=== PATIENT | male | born 1990 | race Caucasian/White ===

== ENCOUNTER 2023-05-03 23:56 | Observation (INO) ==
[2023-05-04] MEDS ORDERED: HYDROmorphone INJ 1 MG/ML SYRINGE IV STA (00:34)
[2023-05-04] MEDS ORDERED: ONDANSETRON INJ 2 MG/ML 2 ML VIAL IV STA (00:34)
[2023-05-04] MEDS ORDERED: SODIUM CHLORIDE 0.9% 1,000 ML IV ONE (00:50)
[2023-05-04 00:59] LABS: iSTAT Creatinine 1.5 mg/dl (0.6-1.3); iSTAT Hemoglobin 15.6 g/dl (14.0-18.0); iSTAT Ionized Calcium 1.05 mmol/l (1.12-1.32); iSTAT Potassium 3.7 mmol/L (3.3-5.0)
[2023-05-04] MEDS ORDERED: OPTIRAY 320 500ml IV ONE (01:04)
[2023-05-04 01:11] LABS: Hematocrit (blood only) 43.5 % (42.0-52.0); Hemoglobin 14.8 g/dl (14.0-18.0); Mean Corpuscular Hemoglobin 28.5 pg (25.0-34.0); Mean Corpuscular Volume 83.7 fL (80.0-100.0); Mean Platelet Volume 10.2 fL (9.4-12.4); Platelet Count 294 K/uL (130-400); RDW Coefficient of Variation 12.4 % (11.5-14.5); RDW Standard Deviation 37.9 fL (36.4-46.3); White Blood Count 24.59 K/ul (4.8-10.8)
--- NOTE | 2023-05-04 01:18 | Emergency Department Note ---
Impression & Plan Acute appendicitis Patient will be admitted to general surgery-Dr. Bergeron ED Provider Note NAME: CARRIE BRICENO AGE: 33 SEX: Male INFORMANT: Patient ED PROVIDER(S): Bambi Griffith DO CHIEF COMPLAINT: Suprapubic abdominal pain PLAN: Disposition: Admit to Dr. Bergeron-surgery MEDICAL DECISION MAKING: This is a 33-year-old male patient who presents to the emergency department with 24-36-hour history of worsening lower abdominal pain. Patient has no previous surgical history. He has been urinating normally but feels like his bladder is distended. He normally moves his bowels daily and believes that he did so this morning. On physical exam, the patient has an acute abdomen. He is guarding and has rebound. Laboratory studies reveal significant leukocytosis greater than 25,000. Renal function was normal. LFTs were normal. Patient was medicated with IV Dilaudid and Zofran for the pain and nausea. This did seem to help with the discomfort. After CT scan, the patient's pain began to return and he was given dose of IV fentanyl. I discussed the case with Dr. Bergeron and she will evaluate for further inpatient care. Care/management discussed with: Dr. Bergeron-General surgery Triage Nursing notes: Reviewed and agree with them. Vital Signs: reviewed and remarkable for hypertension and tachycardia Additional History obtained from: Patient's father who is at the bedside Differential Diagnosis: Urinary outlet obstruction, ureteral colic, perforated viscus, acute appendicitis, diverticulitis, testicular torsion Diagnostics, independently interpreted by me: Cardiac Monitoring: Sinus tachycardia at 108 Imaging studies: CT scan of the abdomen/pelvis: As per stat read HPI: 33 year old Male arrives for evaluation of suprapubic abdominal pain. Patient started to develop some mild discomfort in the suprapubic region on Thursday night that persisted into Thursday morning. It got significantly worse throughout the day to the point that patient could barely move. He does continue to urinate normally. He does believe he moved his bowels this morning as it is typically every day.. 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 Pupils are equal, round, and reactive to light. Extraocular eye muscles are intact, and sclera are anicteric. Nose - moist nasal mucosa without discharge. Mouth - moist buccal mucosa. Oropharynx is nonerythematous and there is no tonsillar exudate or edema noted. Neck: Supple; no JVD, nuchal rigidity, cervical lymphadenopathy, or auscultated bruits. Heart: Tachycardic rate and regular rhythm there is a normal S1 and S2 with no murmurs, clicks, or gallops appreciated. Lungs: Clear to auscultation bilaterally with no wheezes, rales, or rhonchi. Abdomen: Soft, exquisitely tender to palpation in the suprapubic and periumbilical region. The patient is guarding and has rebound. His exam is consistent with an acute abdomen. There are no palpable pulsatile masses or hepatosplenomegaly. There is no guarding, rigidity, or rebound noted. Extremities: No evidence of cyanosis, clubbing, or edema. There are easily palpable peripheral pulses. Skin: warm and dry with good turgor and no rashes. Emergency department treatment: picking machine operator, IV Zofran, IV Dilaudid, IV normal saline bolus Emergency department course: The patient was evaluated in room A-3. A complete history and physical was performed. A bladder scan was performed while I was in the room and revealed only 40 mL of urine within the bladder. Simply doing this test was extremely painful for the patient. An i-STAT was obtained which showed mildly elevated creatinine and elevated H/H most likely consistent with hemoconcentration. Patient was given a dose of IV Zofran and IV Dilaudid for the pain. He was bolused with IV normal saline solution. He went for CT scan of the abdomen/pelvis. Upon return from radiology, he had increased pelvic pain and was given a dose of IV fentanyl. Past Med/Surg History Social History Smoking Status: Former smoker Preferred Language: B[place] Feels Safe at Home: Yes Allergies Allergies Allergy/AdvReac Type Severity Reaction Status Date / Time No Known Allergies Allergy Unverified 05/04/23 01:12 Home Meds Home Medications Medication Instructions Recorded Confirmed No Known Home Medications 05/04/23 05/04/23 Results & Data (ED) Vital Signs Vital Signs - 24 hr 05/04/23 00:02 05/04/23 00:50 05/04/23 02:00 Temperature 37.3 C Temperature Source Temporal Artery Scan Pulse Rate 108 H 102 H Pulse Rate [Finger] 94 H Respiratory Rate 17 18 Respiratory Effort / Characteristics Spontaneous Respiratory Depth Normal Blood Pressure 143/81 H Blood Pressure [Left Arm] 134/81 Blood Pressure Mean 101 Blood Pressure Mean [Left Arm] 98 Pulse Oximetry 96 96 Oxygen Delivery Method Room Air Room Air Sepsis Recent Fever Within 48 Hours No Sepsis New/Unexplained Change in Mental Status No Sepsis Action Taken by Nursing No Action Required Laboratory Data 05/04/23 00:43 05/04/23 00:43 Lab Results 05/04/23 05/04/23 05/04/23 Range/Units 00:43 00:46 02:07 WBC 24.59 H (4.8-10.8) K/ul RBC 5.20 (4.70-6.10) M/uL Hgb 14.8 (14.0-18.0) g/dl POC Hgb 15.6 (14.0-18.0) g/dl Hct 43.5 (42.0-52.0) % POC Hct 46 (42-52) % MCV 83.7 (80.0-100.0) fL MCH 28.5 (25.0-34.0) pg MCHC 34.0 (32.0-36.0) g/dL RDW Std Deviation 37.9 (36.4-46.3) fL RDW Coeff of Jaymie 12.4 (11.5-14.5) % Plt Count 294 (130-400) K/uL MPV 10.2 (9.4-12.4) fL Immature Gran % (Auto) 0.8 % Neut % (Auto) 87.1 % Lymph % (Auto) 4.0 % Bacon % (Auto) 7.8 % Eos % (Auto) 0.0 % Baso % (Auto) 0.3 % Neut # (Auto) 21.42 H (1.40-6.50) K/uL Lymph # (Auto) 0.98 L (1.20-3.40) K/uL Bacon # (Auto) 1.92 H (0.11-0.59) K/uL Eos # (Auto) 0.00 (0.00-0.50) K/uL Baso # (Auto) 0.07 (0.00-0.20) K/uL Immature Gran # (Auto) 0.20 (0.01-0.20) K/uL POC Sodium 137 (135-144) mmol/L Sodium 135 L (136-145) mmol/L POC Potassium 3.7 (3.3-5.0) mmol/L Potassium 3.7 (3.5-5.1) mmol/L POC Chloride 101 (101-112) mmol/L Chloride 99 (98-107) mmol/L Carbon Dioxide 24 (21-32) mmol/L POC Total CO2 23 L (24-31) mmol/L Anion Gap 12 H (3-11) POC Anion Gap 19.0 (16-25) mmol/L POC BUN 20 H (7-18) mg/dl BUN 20 (6-23) mg/dl Creatinine 1.41 H (0.6-1.4) mg/dl POC Creatinine 1.5 H (0.6-1.3) mg/dl Est Cr Clr Drug Dosing Not Reportable Est GFR ( Amer) 76.4 ml/min Est GFR (Non-Af Amer) 65.9 ml/min BUN/Creatinine Ratio 14.2 (10-20) Glucose 120 H (70-99(Fasting)) mg/dl POC Glucose (other) 124 H (70-99) mg/dl Lactate 0.9 (0.4-2.0) mmol/L Calcium 9.1 (8.6-10.3) mg/dl POC Ioniz Calcium Yobany 1.05 L (1.12-1.32) mmol/l Total Bilirubin 0.7 (0.2-1.0) mg/dl AST 10 L (13-39) U/L ALT 11 (7-52) U/L Alkaline Phosphatase 88 (34-104) U/L Total Protein 7.9 (6.0-8.3) gm/dl Albumin 4.3 (3.4-5.0) gm/dl Globulin 3.6 (2.5-4.0) gm/dl Albumin/Globulin Ratio 1.2 (0.9-2) Lipase 40 (11-82) U/L Procalcitonin 11.67 H (0-0.5) ng/ml Administered Medications Morphine Sulfate (Morphine Sulfate 4 Mg/Ml 1 Ml Carp\Vial) 4 mg IV Q3H PRN PRN Reason: Pain (6,7,8,9,10) Stop: 05/18/23 04:17 Last Admin: 05/04/23 05:11 Dose: 4 mg Documented By: SHAKEEL Ondansetron HCl (Ondansetron Inj 2 Mg/Ml 2 Ml Vial) 4 mg IV Q4H PRN PRN Reason: Nausea And Vomiting Stop: 06/03/23 04:17 Last Admin: 05/04/23 05:11 Dose: 4 mg Documented By: SHAKEEL Discontinued Medications Fentanyl Citrate (Fentanyl Citrate Pf 100 Mcg/2 Ml Vial) 100 mcg IV NOW STA Stop: 05/04/23 02:02 Last Admin: 05/04/23 02:24 Dose: 100 mcg Documented By: KENNETH Hydromorphone HCl (Hydromorphone Inj 1 Mg/Ml Syringe) 1 mg IV NOW STA Stop: 05/04/23 00:35 Last Admin: 05/04/23 00:49 Dose: 1 mg Documented By: FAUSTO Sodium Chloride (Nss) 1,000 mls @ 999 mls/hr IV .Q1H1M ONE Stop: 05/04/23 01:50 Last Infusion: 05/04/23 02:38 Dose: Infused Documented By: Admin: 05/04/23 01:12 Dose: 999 mls/hr Documented By: FAUSTO Piperacillin Sod/Tazobactam Sod (Zosyn) 4.5 gm in 100 mls @ 200 mls/hr IV NOW STA Stop: 05/04/23 05:20 Last Admin: 05/04/23 05:32 Dose: 200 mls/hr Documented By: SHAKEEL Ioversol (Optiray 320 500ml) 100 ml IV ONCE ONE Stop: 05/04/23 01:05 Last Admin: 05/04/23 01:04 Dose: 80 ml Documented By: BREANNE Ondansetron HCl (Ondansetron Inj 2 Mg/Ml 2 Ml Vial) 4 mg IV NOW STA Stop: 05/04/23 00:35 Last Admin: 05/04/23 00:49 Dose: 4 mg Documented By: FAUSTO Imaging Data Radiologist's Impression: Abdomen/Pelvis CT 05/04/23 00:34 CR Exam(s): CT ABDOMEN + PELVIS With Contrast IV Amt: 80 ML OPTIRAY 320 EXAM: CT Abdomen and Pelvis With Intravenous Contrast CLINICAL HISTORY: Reason for exam: Severe suprapubic pain. TECHNIQUE: Axial computed tomography images of the abdomen and pelvis with intravenous contrast. Automated exposure control was utilized for the study. A dose lowering technique was utilized adhering to the principles of ALARA. CONTRAST: Patient received 80 ML OPTIRAY 320 of IV contrast COMPARISON: No relevant prior studies available. FINDINGS: Lung bases: Unremarkable. No mass. No consolidation. ABDOMEN: Liver: Unremarkable. No mass. Gallbladder and bile ducts: Unremarkable. No calcified stones. No ductal dilation. Pancreas: Unremarkable. No mass. No ductal dilation. Spleen: Unremarkable. No splenomegaly. Adrenals: Unremarkable. No mass. Kidneys and ureters: Unremarkable. No solid mass. No hydronephrosis. Stomach and bowel: Unremarkable. No obstruction. No mucosal thickening. PELVIS: Appendix: There is an inflammatory process in the upper pelvis. A normal appendix is not identified. There is a small calcification which may represent an appendicolith. These findings likely represent Bladder: Unremarkable. No mass. Reproductive: Unremarkable as visualized. ABDOMEN and PELVIS: Intraperitoneal space: Unremarkable. No free air. No significant fluid collection. Bones/joints: No acute fracture. No dislocation. Soft tissues: Unremarkable. Vasculature: Unremarkable. No abdominal aortic aneurysm. Lymph nodes: Unremarkable. No enlarged lymph nodes. IMPRESSION: Inflammatory process in the pelvis without a normal appendix identified. The findings are likely related to acute appendicitis. There is no free air or drainable abscess clearly indicate rupture. Communications: 05/04/23 02:27 Call Doctor Regarding Appendicitis, called Dr. Griffith on 05/04 02:27 (-05:00) Electronically signed by: Oziel Esposito MD 05/04/23 02:30 AM Discharge Plan Visit Data Chief Complaint: GI Assessment Stated Complaint: LWR ABDOMINAL PAIN,UNABLE TO GO ED Provider: Bambi Griffith Discharge Problem: Acute appendicitis Patient Disposition: Admitted As Inpatient Discharge Instructions Interventions: ED Discharge Assessment Last Done: 05/04/23 04:39 Discharge Problem: Acute appendicitis Qualifiers: Acute appendicitis type: with generalized peritonitis
[2023-05-04 01:26] LABS: Alanine Aminotransferase 11 U/L (7-52); Albumin Globulin Ratio 1.2 (0.9-2); Albumin Level 4.3 gm/dl (3.4-5.0); Alkaline Phosphatase 88 U/L (34-104); Anion Gap 12 (3-11); Aspartate Aminotransferase 10 U/L (13-39); BUN Creatinine Ratio 14.2 (10-20); Bilirubin,Total 0.7 mg/dl (0.2-1.0); Blood Urea Nitrogen 20 mg/dl (6-23); Calcium 9.1 mg/dl (8.6-10.3); Carbon Dioxide 24 mmol/L (21-32); Chloride 99 mmol/L (98-107); Est GFR (African American) 76.4 ml/min; Est GFR (Non-African American) 65.9 ml/min; Globulin 3.6 gm/dl (2.5-4.0); Glucose 120 mg/dl (70-99(Fasting)); Lipase 40 U/L (11-82); Potassium 3.7 mmol/L (3.5-5.1); Sodium 135 mmol/L (136-145); Total Protein 7.9 gm/dl (6.0-8.3)
[2023-05-04 01:28] LABS: Basophils # (auto) 0.07 K/uL (0.00-0.20); Basophils % (auto) 0.3 %; Immature Granulocytes % (auto) 0.8 %; Lymphocytes # (auto) 0.98 K/uL (1.20-3.40); Monocytes # (auto) 1.92 K/uL (0.11-0.59); Monocytes % (auto) 7.8 %; Neutrophils # (auto) 21.42 K/uL (1.40-6.50); Neutrophils % (auto) 87.1 %
[2023-05-04] MEDS ORDERED: fentaNYL citrate PF 100 MCG/2 ML VIAL IV STA (02:01)
--- NOTE | 2023-05-04 02:31 | CT Scan Report ---
Exam(s): CT ABDOMEN + PELVIS With Contrast IV Amt: 80 ML OPTIRAY 320 EXAM: CT Abdomen and Pelvis With Intravenous Contrast CLINICAL HISTORY: Reason for exam: Severe suprapubic pain. TECHNIQUE: Axial computed tomography images of the abdomen and pelvis with intravenous contrast. Automated exposure control was utilized for the study. A dose lowering technique was utilized adhering to the principles of ALARA. CONTRAST: Patient received 80 ML OPTIRAY 320 of IV contrast COMPARISON: No relevant prior studies available. FINDINGS: Lung bases: Unremarkable. No mass. No consolidation. ABDOMEN: Liver: Unremarkable. No mass. Gallbladder and bile ducts: Unremarkable. No calcified stones. No ductal dilation. Pancreas: Unremarkable. No mass. No ductal dilation. Spleen: Unremarkable. No splenomegaly. Adrenals: Unremarkable. No mass. Kidneys and ureters: Unremarkable. No solid mass. No hydronephrosis. Stomach and bowel: Unremarkable. No obstruction. No mucosal thickening. PELVIS: Appendix: There is an inflammatory process in the upper pelvis. A normal appendix is not identified. There is a small calcification which may represent an appendicolith. These findings likely represent Bladder: Unremarkable. No mass. Reproductive: Unremarkable as visualized. ABDOMEN and PELVIS: Intraperitoneal space: Unremarkable. No free air. No significant fluid collection. Bones/joints: No acute fracture. No dislocation. Soft tissues: Unremarkable. Vasculature: Unremarkable. No abdominal aortic aneurysm. Lymph nodes: Unremarkable. No enlarged lymph nodes. IMPRESSION: Inflammatory process in the pelvis without a normal appendix identified. The findings are likely related to acute appendicitis. There is no free air or drainable abscess clearly indicate rupture. Communications: 05/04/23 02:27 Call Doctor Regarding Appendicitis, called Dr. Griffith on 05/04 02:27 (-05:00) Electronically signed by: Oziel Esposito MD 05/04/23 02:30 AM
[2023-05-04] MEDS ORDERED: MoRPHine SULFATE 2 MG/ML CARP IV PRN (04:18)
[2023-05-04] MEDS ORDERED: oxyCODONE/ACETAMINOPHEN 5mg/325mg TAB PO PRN (04:18)
[2023-05-04] MEDS ORDERED: PIPERACILLIN/TAZOBACTAM 4.5 GM/100 ML BAG IV STA (04:51)
[2023-05-04] MEDS: MoRPHine SULFATE 4 MG/ML 1 ML CARP\\VIAL IV PRN ×5 (05:11→22:22)
[2023-05-04] MEDS: ONDANSETRON INJ 2 MG/ML 2 ML VIAL IV PRN ×2 (05:11→08:38)
[2023-05-04] MEDS: LACTATED RINGER'S 1,000 ML IV SCH ×2 (06:08→16:51)
[2023-05-04] MEDS: oxyCODONE/ACETAMINOPHEN 5mg/325mg TAB PO PRN ×2 (08:23→20:35)
[2023-05-04 09:09] LABS: Appearance Urine Clear (Clear); Bacteria Urine Automated Negative (Negative); Bilirubin Urine Negative (Negative); Blood Urine Negative (Negative); Color Urine Yellow; Glucose Urine UA Negative (Negative); Ketones Urine Negative (Negative); Leukocyte Esterase Urine Negative (Negative); Nitrite Urine Negative (Negative); Protein Urine Trace (Negative); RBC Urine Automated 0-4 /hpf (0-4); Specific Gravity Urine > 1.045 (1.000-1.030); Urobilinogen Urine Negative (Negative); pH Urine 5.5 (4.5-7.5)
--- NOTE | 2023-05-04 09:38 | History & Physical Report ---
Date of Service May 04, 2023 Assessment & Plan (1) Acute appendicitis: Plan: IV abx IVf to OR for appendectomy Acute appendicitis type: with generalized peritonitis Admission and Anticipated Discharge Date Admission Date: May 04, 2023 History of Present Illness Primary Care Provider: Wili Hawkins DO This is a 33-year-old male patient who presented to the emergency department with 24-36-hour history of worsening lower abdominal pain. Patient has no previous surgical history. He had a CT scan which shows a lrge 2.5 cm appendicitis, WBC 25,000. . 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 Beliefs That Will Affect Care: None Current Living Situation: Spouse Other Information That Helps Us Care for You: No Feels Safe at Home: Yes Safety Concerns: Feels Safe At This Time Assistive Devices: None Review of Systems + fever and + chills no problem reported no problem reported no cough and no dyspnea no chest pain + abdominal pain and + nausea; no vomiting no dysuria no back pain and no neck pain no problem reported no localized weakness and no generalized weakness no behavioral changes no problem reported no problem reported no problem reported Physical Exam Constitutional: WD/WN, vitals as above Eyes: PERRL, conjunctivae normal, anicteric sclerae ENMT: external ear and nose normal, oropharynx normal Neck: trachea midline Respiratory: normal respiratory effort, lungs clear to auscultation Cardiovascular: RRR, no murmur, no edema Gastrointestinal (Abdomen): Inspection/Auscultation: abdomen normal to inspection and normal bowel sounds; abdomen not distended Percussion/Palpation: + abdomen tender, + guarding and abdomen soft; abdomen not rigid Musculoskeletal: no cyanosis or clubbing, extremities motor strength 5/5 Skin: no rashes, warm and dry Psychiatric: Orientation: alert and oriented x 3 Results & Data Vital Signs (Past 12 Hours) Vital Signs Temp Pulse Pulse Resp BP BP Pulse Ox 05/04/23 08:24 05/04/23 08:24 37.6 C H 92 H 20 151/81 H 95 05/04/23 08:07 87 05/04/23 06:00 87 15 124/60 96 05/04/23 05:40 84 20 94 05/04/23 05:30 85 20 95 05/04/23 05:25 83 19 94 05/04/23 05:00 84 15 113/68 98 05/04/23 04:40 84 24 95 05/04/23 04:30 83 17 95 05/04/23 04:30 113/67 05/04/23 04:20 85 23 95 05/04/23 04:10 83 21 95 05/04/23 04:00 108/66 05/04/23 04:00 84 20 96 05/04/23 04:00 85 20 108/66 95 05/04/23 03:50 84 23 95 05/04/23 03:40 86 18 94 05/04/23 03:30 122/69 05/04/23 03:30 87 24 95 05/04/23 03:20 84 17 94 05/04/23 03:10 85 22 95 05/04/23 03:00 87 21 94 05/04/23 03:00 118/69 05/04/23 02:50 89 17 96 05/04/23 02:40 91 H 16 95 05/04/23 02:30 91 H 32 H 95 05/04/23 02:30 123/81 05/04/23 02:20 89 13 95 05/04/23 02:10 91 H 20 95 05/04/23 02:00 94 H 52 H 96 05/04/23 02:00 134/81 05/04/23 02:00 94 H 18 134/81 96 05/04/23 01:50 89 26 H 94 05/04/23 01:40 92 H 21 95 05/04/23 01:30 130/78 05/04/23 01:30 93 H 21 95 05/04/23 01:20 96 H 24 94 05/04/23 01:12 135/86 05/04/23 01:12 99 H 21 94 05/04/23 00:50 100 H 16 95 05/04/23 00:50 102 H 05/04/23 00:48 100 H 21 95 05/04/23 00:02 37.3 C 108 H 17 143/81 H 96 O2 Del Method 05/04/23 08:24 Room Air 05/04/23 08:24 Room Air 05/04/23 08:07 05/04/23 06:00 Room Air 05/04/23 05:40 05/04/23 05:30 05/04/23 05:25 05/04/23 05:00 Room Air 05/04/23 04:40 05/04/23 04:30 05/04/23 04:30 05/04/23 04:20 05/04/23 04:10 05/04/23 04:00 05/04/23 04:00 05/04/23 04:00 Room Air 05/04/23 03:50 05/04/23 03:40 05/04/23 03:30 05/04/23 03:30 05/04/23 03:20 05/04/23 03:10 05/04/23 03:00 05/04/23 03:00 05/04/23 02:50 05/04/23 02:40 05/04/23 02:30 05/04/23 02:30 05/04/23 02:20 05/04/23 02:10 05/04/23 02:00 05/04/23 02:00 05/04/23 02:00 Room Air 05/04/23 01:50 05/04/23 01:40 05/04/23 01:30 05/04/23 01:30 05/04/23 01:20 05/04/23 01:12 05/04/23 01:12 05/04/23 00:50 05/04/23 00:50 05/04/23 00:48 05/04/23 00:02 Room Air Code Status & VTE Plan VTE Prophylaxis Plan VTE Prophylaxis will be ordered: Yes
[2023-05-04] MEDS ORDERED: HYDROmorphone INJ 0.5 MG/0.5 ML SYR IV STA ×2 (10:59→11:48)
[2023-05-04] MEDS ORDERED: HYDROmorphone INJ 0.5 MG/0.5 ML SYR ONE (11:01)
--- NOTE | 2023-05-04 11:02 | Anesthesiology Consultation ---
Date of Service May 04, 2023 Assessment & Plan Chart Review Chart Review: Acceptable Risk for Surgery and Patient NOT seen in Pre Admission Testing Consults Requested none History Surgery Operation Date: 05/04/23 08:55 Proposed Procedures p Laparoscopic Appendectomy - Kaveh Davis MD Height/Weight Height: 6 ft 3 in Weight: 106.3 kg Allergies Allergy/AdvReac Type Severity Reaction Status Date / Time No Known Allergies Allergy Unverified 05/04/23 01:12 Medications Home Medications Medication Instructions Recorded Confirmed Last Taken No Known Home Medications 05/04/23 05/04/23 Unknown Active Medications Generic Name Dose Route Start Last Admin Trade Name Freq PRN Reason Stop Dose Admin Lactated Ringer's 1,000 mls @ 100 mls/hr 05/04/23 04:18 05/04/23 06:08 Lr IV 06/03/23 04:17 100 mls/hr .Q10H LAYLA Administration Morphine Sulfate 4 mg 05/04/23 04:18 05/04/23 08:37 Morphine Sulfate 4 Mg/Ml 1 Ml Carp\Vial IV 05/18/23 04:17 4 mg Q3H PRN Administration Pain (6,7,8,9,10) Morphine Sulfate 2 mg 05/04/23 04:18 05/04/23 09:43 Morphine Sulfate 2 Mg/Ml Carp IV 05/18/23 04:17 2 mg Q3H PRN Administration Pain (1,2,3,4,5) & Pre PT Ondansetron HCl 4 mg 05/04/23 04:18 05/04/23 08:38 Ondansetron Inj 2 Mg/Ml 2 Ml Vial IV 06/03/23 04:17 4 mg Q4H PRN Administration Nausea And Vomiting Oxycodone/Acetaminophen 2 tab 05/04/23 04:18 05/04/23 08:23 Oxycodone/Acetaminophen 5mg/325mg Tab PO 05/18/23 04:17 2 tab Q4H PRN Administration SEVERE Pain (7,8,9,10) NPO Date Last Intake of Fluids: 05/03/23 Time Last Intake of Fluids: 22:00 Date Last Intake of Solids: 05/02/23 Social History Smoking Status: Never smoker Do You Dip or Chew Tobacco: No Hx Alcohol Use: No Hx Substance Use: No substance use type: does not use Review of Systems Constitutional: + fever and + chills Eyes: no problem reported Ear, Nose, Mouth, Throat: no problem reported Respiratory: no cough and no dyspnea Cardiovascular: no chest pain Gastrointestinal: + abdominal pain and + nausea; no vomiting Genitourinary (Male): no dysuria Musculoskeletal: no back pain and no neck pain Integumentary: no problem reported Neurologic: no localized weakness and no generalized weakness Psychiatric: no behavioral changes Endocrine: no problem reported Hematologic / Lymphatic: no problem reported Allergy / Immunological: no problem reported Physical Exam Vital Signs Last Vital Signs Temp 37.3 C 05/04/23 10:21 Pulse 98 H 05/04/23 10:21 Resp 18 05/04/23 10:21 BP 137/87 05/04/23 10:21 Pulse Ox 96 05/04/23 10:21 O2 Del Method Room Air 05/04/23 10:21 Constitutional WD/WN, vitals as above Eyes PERRL, conjunctivae normal, anicteric sclerae ENMT external ear and nose normal, oropharynx normal Neck trachea midline Respiratory normal respiratory effort, lungs clear to auscultation Cardiovascular RRR, no murmur, no edema Gastrointestinal (Abdomen) Inspection/Auscultation: abdomen normal to inspection and normal bowel sounds; abdomen not distended Percussion/Palpation: + abdomen tender, + guarding and abdomen soft; abdomen not rigid Musculoskeletal no cyanosis or clubbing, extremities motor strength 5/5 Skin no rashes, warm and dry Psychiatric Orientation: alert and oriented x 3 Testing Laboratory Results 05/04/23 00:43 05/04/23 00:43 Urine Color Yellow 05/04/23 08:44 Urine Appearance Clear (Clear) 05/04/23 08:44 Urine pH 5.5 (4.5-7.5) 05/04/23 08:44 Ur Specific [place] > 1.045 (1.000-1.030) H 05/04/23 08:44 Urine Protein Trace (Negative) H 05/04/23 08:44 Urine Glucose (UA) Negative (Negative) 05/04/23 08:44 Urine Ketones Negative (Negative) 05/04/23 08:44 Urine Nitrite Negative (Negative) 05/04/23 08:44 Ur Leukocyte Esterase Negative (Negative) 05/04/23 08:44 Urine WBC (Auto) 1-5 /hpf (0-5) 05/04/23 08:44 Urine RBC (Auto) 0-4 /hpf (0-4) 05/04/23 08:44 U Hyaline Cast (Auto) 1-5 /lpf (0-5) 05/04/23 08:44 U Epithel Cells (Auto) 5-10 /lpf (0-5) H 05/04/23 08:44 Urine Bacteria (Auto) Negative (Negative) 05/04/23 08:44 05/04/23 00:46 POC Glucose (other) 124 H
[2023-05-04] MEDS ORDERED: ePHEDrine sulfate 50 MG/ML AMP IV PRN (11:03)
[2023-05-04] MEDS ORDERED: ONDANSETRON INJ 2 MG/ML 2 ML VIAL IV PRN ×2 (11:03→14:30)
[2023-05-04] MEDS ORDERED: ATROPINE SULFATE 0.1 MG/ML 10ML SYR IV PRN (11:03)
[2023-05-04] MEDS ORDERED: cefOXitin 2,000 MG in DEXTROSE 5 % MINI-B 50 ML IV SCH (11:14)
[2023-05-04] MEDS ORDERED: BUPIVACAINE/EPINEPHRINE 0.5% MPF 1:200,000 30 ML VIAL ONE (12:28)
[2023-05-04] MEDS ORDERED: MIDAZOLAM HCL 1 MG/ML 2ML VIAL ONE (12:36)
[2023-05-04] MEDS ORDERED: fentaNYL citrate PF 100 MCG/2 ML VIAL ONE ×2 (12:36→13:59)
[2023-05-04] MEDS ORDERED: ROCURONIUM BROMIDE 10 MG/ML 5 ML VIAL IV ONE ×2 (12:36→13:38)
[2023-05-04] MEDS ORDERED: LIDOCAINE 2% 2 ML VIAL/AMP(20MG/ML) INFIL ONE (12:36)
[2023-05-04] MEDS ORDERED: PROPOFOL IV EMULSION 10 MG/ML 20 ML VIAL IV ONE (12:36)
[2023-05-04] MEDS ORDERED: DEXAMETHASONE SOD INJ 4 MG/ML VIAL ONE (13:38)
[2023-05-04] MEDS ORDERED: ONDANSETRON INJ 2 MG/ML 2 ML VIAL ONE (13:38)
[2023-05-04] MEDS ORDERED: SUCCINYLCHOLINE 100MG/5ML SYR IV ONE (13:41)
[2023-05-04] MEDS ORDERED: SUGAMMADEX SODIUM 200 MG/2 ML VIAL IV ONE (13:43)
[2023-05-04] MEDS ORDERED: KETOROLAC 30 MG/ML VIAL ONE (13:58)
--- NOTE | 2023-05-04 14:17 | Post Operative Brief Note ---
Immediate Post Op Note v1 Date of Surgery May 04, 2023 Pre & Post Diagnosis Operation Date: 05/04/23 08:55 Pre-Op Diagnosis: Acute appendicitis Post-Op Diagnosis: Acute Appendicitis I identified the patient and participated in the time-out.: Yes Procedure Operation Date: 05/04/23 08:55 Actual Procedures p Laparoscopic Appendectomy(Not Applicable) - Kaveh Davis MD Surgeon Kaveh Davis MD Building Maintenance Superintendent none Estimated Blood Loss 30 Findings Consistent with Post-Op Diagnosis Drains [place] Drain (19fr with 100ml evacuator)
[2023-05-04] MEDS ORDERED: ACETAMINOPHEN 1,000 MG/100 ML VIAL IV STA (14:29)
--- NOTE | 2023-05-04 14:29 | Operative Report ---
Post Operative Report Pre & Post Diagnosis Operation Date: 05/04/23 08:55 Pre-Op Diagnosis: Acute appendicitis Post-Op Diagnosis: Acute Appendicitis I identified the patient and participated in the time-out.: Yes Procedure Operation Date: 05/04/23 08:55 Actual Procedures p Laparoscopic Appendectomy(Not Applicable) - Kaveh Davis MD Surgeon Kaveh Davis MD Rn Burn none Estimated Blood Loss 30 Findings Consistent with Post-Op Diagnosis Acute near gangrenous purulent appendicitis Specimens Appendix to pathology Drains Jeffrey drain in the right lower quad Anesthesia Type General Complications None Indications This is a 33-year-old male admitted through the ED with acute abdominal pain. CT showed a severely dilated appendix with periappendiceal inflammation consistent with acute appendicitis. He had an elevated white count and peritoneal signs on exam. I talked in detail and recommended laparoscopic appendectomy. I went over the risks of open procedure, postop infection requiring drainage, reoperation for complication, bleeding, and infection. Description of Procedure The patient was taken to the OR and underwent excellent general anesthesia. His abdomen was prepped and draped in normal sterile fashion. A supraumbilical transverse supraumbilical incision was made, towel clamps were used to create tension on the abdominal wall. A Varees needle was inserted into his peritoneal cavity. Good pneumoperitoneum was achieved to about 15 mmHg pressure. Once this was done visualized 11 port was placed in the supraumbilical position. A 11mm left lower quadrant port , a 5mm suprapubic port , and a 5mm right upper quadrant port were placed in normal fashion. Patient was then placed in head down and rolled to the left. Good diagnostic lap was performed. He had obvious acute appendicitis with a phlegmon of tissue surrounding his appendix. This was taken down with sharp and blunt dissection. . The cecum was grasped with an atraumatic grasper. A grasper was then placed was then used to grasp the tip of the appendix. The mesoappendix was splayed open and a harmonic scalpel was used to take down the mesoappendix. This was taken down to the base of the appendix. Once this was identified an Endo JAZZY stapler was used to transect the appendix at its base. A Endobag was then inserted through the left lower quadrant port, the appendix was placed and then brought out through the left lower quadrant port. Appendix sent for pathologic evaluation. Pneumoperitoneum and the port reestablished. A liter of saline was then used to irrigate the right lower quadrant. There was no active bleeding no other abnormalities were noted in the abdomen. A jeffrey drain was placed through the suprapubic incision and secured with a nylon suture. Patient was then placed in a neutral position and the ports were removed. The Varess needle was removed the and abdomen was then decompressed. The 12 port fascia was then closed using a 0 Vicryl. The skin was then anesthetized with 0.5% Marcaine with epinephrine local. Interrupted Vicryl is used to close the skin. Steri-Strips and benzoin were use d to reinforce the incisions. Sterile dressings were applied. Patient tolerated procedure without complication was sent to the postop recovery period of observation. He will be sent to the floor for the rest of his care. I attest to the content of the Intraoperative Record and any orders documented therein. Any exceptions are noted below.
[2023-05-04] MEDS ORDERED: ACETAMINOPHEN 1000 MG/100 ML IV IV ONE (14:30)
[2023-05-04] MEDS ORDERED: ALUMINUM/MAGNESIUM SUSP 30 ML UDC PO PRN (14:30)
[2023-05-04] MEDS ORDERED: oxyCODONE HCL IR 5 MG TAB (IMMEDIATE RELEASE) PO PRN (14:30)
--- NOTE | 2023-05-04 14:38 | Anesthesiology Progress Note ---
Date of Service May 04, 2023 Anesthesia Post Procedure Vital Signs Vital Signs: Temp Pulse Pulse Resp BP BP Pulse Ox 05/04/23 10:21 37.3 C 98 H 18 137/87 96 05/04/23 08:24 05/04/23 08:24 37.6 C H 92 H 20 151/81 H 95 05/04/23 08:07 87 05/04/23 06:00 87 15 124/60 96 05/04/23 05:40 84 20 94 05/04/23 05:30 85 20 95 05/04/23 05:25 83 19 94 05/04/23 05:00 84 15 113/68 98 05/04/23 04:40 84 24 95 05/04/23 04:30 83 17 95 05/04/23 04:30 113/67 05/04/23 04:20 85 23 95 05/04/23 04:10 83 21 95 05/04/23 04:00 108/66 05/04/23 04:00 84 20 96 05/04/23 04:00 85 20 108/66 95 05/04/23 03:50 84 23 95 05/04/23 03:40 86 18 94 05/04/23 03:30 122/69 05/04/23 03:30 87 24 95 05/04/23 03:20 84 17 94 05/04/23 03:10 85 22 95 05/04/23 03:00 87 21 94 05/04/23 03:00 118/69 05/04/23 02:50 89 17 96 05/04/23 02:40 91 H 16 95 05/04/23 02:30 91 H 32 H 95 05/04/23 02:30 123/81 05/04/23 02:20 89 13 95 05/04/23 02:10 91 H 20 95 05/04/23 02:00 94 H 52 H 96 05/04/23 02:00 134/81 05/04/23 02:00 94 H 18 134/81 96 05/04/23 01:50 89 26 H 94 05/04/23 01:40 92 H 21 95 05/04/23 01:30 130/78 05/04/23 01:30 93 H 21 95 05/04/23 01:20 96 H 24 94 05/04/23 01:12 135/86 05/04/23 01:12 99 H 21 94 05/04/23 00:50 100 H 16 95 05/04/23 00:50 102 H 05/04/23 00:48 100 H 21 95 05/04/23 00:02 37.3 C 108 H 17 143/81 H 96 O2 Del Method 05/04/23 10:21 Room Air 05/04/23 08:24 Room Air 05/04/23 08:24 Room Air 05/04/23 08:07 05/04/23 06:00 Room Air 05/04/23 05:40 05/04/23 05:30 05/04/23 05:25 05/04/23 05:00 Room Air 05/04/23 04:40 05/04/23 04:30 05/04/23 04:30 05/04/23 04:20 05/04/23 04:10 05/04/23 04:00 05/04/23 04:00 05/04/23 04:00 Room Air 05/04/23 03:50 05/04/23 03:40 05/04/23 03:30 05/04/23 03:30 05/04/23 03:20 05/04/23 03:10 05/04/23 03:00 05/04/23 03:00 05/04/23 02:50 05/04/23 02:40 05/04/23 02:30 05/04/23 02:30 05/04/23 02:20 05/04/23 02:10 05/04/23 02:00 05/04/23 02:00 05/04/23 02:00 Room Air 05/04/23 01:50 05/04/23 01:40 05/04/23 01:30 05/04/23 01:30 05/04/23 01:20 05/04/23 01:12 05/04/23 01:12 05/04/23 00:50 05/04/23 00:50 05/04/23 00:48 05/04/23 00:02 Room Air Pain Intensity Abdomen: Pain Intensity: 9 Transfer of Care Handoff Completed per policy Notes Mental Status: alert / awake / arousable Patient Amnestic to Procedure: Yes Nausea / Vomiting: adequately controlled Pain: adequately controlled Airway Patency, RR, SpO2: stable & adequate BP & HR: stable & adequate Hydration State: stable & adequate Anesthetic Complications: no major complications apparent and Pt Satisfied with anesthetic care
[2023-05-04] MEDS: fentaNYL citrate PF 100 MCG/2 ML VIAL IV PRN ×4 (14:52→15:07)
[2023-05-04] MEDS: PIPERACILLIN/TAZOBACTAM 4.5 GM in DEXTROSE 5% MINI-B 100 ML IV SCH ×2 (16:38→17:48)
[2023-05-04] MEDS: oxyCODONE HCL IR 5 MG TAB (IMMEDIATE RELEASE) PO PRN ×2 (17:47→23:21)
[2023-05-04] MEDS: ACETAMINOPHEN 325 MG TAB PO PRN (19:28)
[2023-05-05] MEDS: MoRPHine SULFATE 4 MG/ML 1 ML CARP\\VIAL IV PRN (02:02)
[2023-05-05] MEDS: PIPERACILLIN/TAZOBACTAM 4.5 GM in DEXTROSE 5% MINI-B 100 ML IV SCH ×3 (02:25→18:40)
[2023-05-05] MEDS: IBUPROFEN 600 MG TAB PO PRN ×3 (02:26→18:39)
[2023-05-05] MEDS: LACTATED RINGER'S 1,000 ML IV SCH ×3 (02:27→22:24)
[2023-05-05] MEDS: HYDROmorphone INJ 1 MG/ML SYRINGE IV PRN ×3 (03:06→15:07)
[2023-05-05] MEDS: oxyCODONE HCL IR 5 MG TAB (IMMEDIATE RELEASE) PO PRN ×4 (05:50→20:29)
[2023-05-05 05:57] LABS: Calcium 8.9 mg/dl (8.6-10.3); Creatinine Clr Calc Pharmacy 128.3 ml/min; Est GFR (African American) 103.1 ml/min; Potassium 4.7 mmol/L (3.5-5.1)
[2023-05-05 05:59] LABS: Basophils # (auto) 0.04 K/uL (0.00-0.20); Basophils % (auto) 0.2 %; Hematocrit (blood only) 33.2 % (42.0-52.0); Hemoglobin 11.3 g/dl (14.0-18.0); Immature Granulocytes # (auto) 0.32 K/uL (0.01-0.20); Immature Granulocytes % (auto) 1.2 %; Lymphocytes # (auto) 0.67 K/uL (1.20-3.40); Lymphocytes % (auto) 2.6 %; Mean Corpuscular Volume 85.1 fL (80.0-100.0); Mean Platelet Volume 10.3 fL (9.4-12.4); Monocytes # (auto) 1.34 K/uL (0.11-0.59); Monocytes % (auto) 5.2 %; Neutrophils # (auto) 23.35 K/uL (1.40-6.50); Neutrophils % (auto) 90.8 %; Platelet Count 243 K/uL (130-400); RDW Coefficient of Variation 12.8 % (11.5-14.5); RDW Standard Deviation 39.5 fL (36.4-46.3); White Blood Count 25.72 K/ul (4.8-10.8)
[2023-05-05] MEDS: DOCUSATE SODIUM 100 MG CAP PO SCH ×2 (09:05→20:30)
--- NOTE | 2023-05-05 12:47 | Surgery Progress Note ---
Date of Service May 05, 2023 Assessment & Plan (1) Acute appendicitis: Plan: con't IV abx ambulate advance diet possibly home in AM Present on Admission?: Yes Admission and Anticipated Discharge Date Admission Date: May 04, 2023 Subjective pain controlled appetite returning ambulating OK Review of Systems Constitutional: no fever and no chills Respiratory: no cough and no dyspnea Cardiovascular: no chest pain Gastrointestinal: + abdominal pain; no nausea and no vomit ing Genitourinary: no dysuria Neurologic: no localized weakness and no generalized weakness Physical Exam Constitutional: WD/WN, vitals as above Respiratory: normal respiratory effort, lungs clear to auscultation Cardiovascular: RRR, no murmur, no edema Gastrointestinal (Abdomen): Inspection/Auscultation: abdomen normal to inspection and normal bowel sounds; abdomen not distended Percussion/Palpation: + abdomen tender and abdomen soft; no guarding and abdomen not rigid Sidney drainserosanguinous Musculoskeletal: Head/Neck/Chest: normocephalic and head atraumatic Results & Data Vital Signs (Past 12 Hours) Vital Signs Temp Pulse Resp BP Pulse Ox O2 Del Method 05/05/23 07:32 37 C 67 16 121/70 96 Room Air 05/05/23 03:19 37.1 C 74 14 120/71 97 Room Air (1) Acute appendicitis Acute appendicitis type: with generalized peritonitis
[2023-05-06] MEDS: PIPERACILLIN/TAZOBACTAM 4.5 GM in DEXTROSE 5% MINI-B 100 ML IV SCH ×3 (01:37→17:55)
[2023-05-06] MEDS: oxyCODONE HCL IR 5 MG TAB (IMMEDIATE RELEASE) PO PRN ×4 (04:53→22:24)
[2023-05-06] MEDS: IBUPROFEN 600 MG TAB PO PRN ×2 (06:20→14:54)
[2023-05-06] MEDS: ACETAMINOPHEN 325 MG TAB PO PRN ×2 (07:55→18:04)
[2023-05-06] MEDS: DOCUSATE SODIUM 100 MG CAP PO SCH ×2 (07:55→21:17)
[2023-05-06] MEDS: LACTATED RINGER'S 1,000 ML IV SCH ×2 (07:58→17:55)
--- NOTE | 2023-05-06 09:18 | Surgery Progress Note ---
Date of Service May 06, 2023 Assessment & Plan (1) Acute appendicitis: Plan: con't IV abx check CBC in AM Admission and Anticipated Discharge Date Admission Date: May 04, 2023 Subjective febrile pain about the same eating OK ambulating Review of Systems Constitutional: + fever and + chills Respiratory: no cough and no dyspnea Cardiovascular: no chest pain Gastrointestinal: + abdominal pain; no nausea and no vomit ing Genitourinary: no dysuria Physical Exam Constitutional: WD/WN, vitals as above Respiratory: normal respiratory effort, lungs clear to auscultation Cardiovascular: RRR, no murmur, no edema Gastrointestinal (Abdomen): Inspection/Auscultation: abdomen normal to inspection, + abdomen distended and normal bowel sounds Percussion/Palpation: + abdomen tender and abdomen soft; no guarding and abdomen not rigid Musculoskeletal: Head/Neck/Chest: normocephalic and head atraumatic Results & Data Vital Signs (Past 12 Hours) Vital Signs Temp Pulse Resp BP Pulse Ox O2 Del Method 05/06/23 07:48 38.7 C H 96 H 24 134/73 95 Room Air 05/06/23 06:33 38.7 C H 05/06/23 06:32 38.7 C H (1) Acute appendicitis Acute appendicitis type: with generalized peritonitis
[2023-05-06] MEDS: HYDROmorphone INJ 1 MG/ML SYRINGE IV PRN ×2 (13:30→19:42)
[2023-05-06 16:26] LABS: Basophils # (auto) 0.03 K/uL (0.00-0.20); Basophils % (auto) 0.2 %; Eosinophils # (auto) 0.07 K/uL (0.00-0.50); Eosinophils % (auto) 0.6 %; Hematocrit (blood only) 35.3 % (42.0-52.0); Hemoglobin 11.3 g/dl (14.0-18.0); Immature Granulocytes # (auto) 0.05 K/uL (0.01-0.20); Immature Granulocytes % (auto) 0.4 %; Lymphocytes # (auto) 0.68 K/uL (1.20-3.40); Lymphocytes % (auto) 5.6 %; Mean Corpuscular Hemoglobin 27.6 pg (25.0-34.0); Mean Corpuscular Volume 86.1 fL (80.0-100.0); Mean Platelet Volume 10.3 fL (9.4-12.4); Monocytes % (auto) 7.4 %; Neutrophils # (auto) 10.47 K/uL (1.40-6.50); Neutrophils % (auto) 85.8 %; Platelet Count 217 K/uL (130-400); RDW Coefficient of Variation 12.8 % (11.5-14.5); RDW Standard Deviation 40.1 fL (36.4-46.3)
--- NOTE | 2023-05-06 16:33 | XRay Report ---
XR chest 1V portable HISTORY: 33 years-old Male Fever acute fever COMPARISON: CT abdomen and pelvis 05/04/2023 TECHNIQUE: AP view of the chest FINDINGS: Cardiomediastinal and hilar silhouettes are within normal limits. Subsegmental left infrahilar linear opacity. No pneumothorax, pleural effusion or pulmonary edema. The bones appear normal. IMPRESSION: Subsegmental linear left infrahilar opacity favors atelectasis. Findings could be correla april with PA and lateral views of the chest to exclude pneumonia. ACT 112: Negative or not required by law. The above report was generated using voice recognition software. It may contain grammatical, syntax o r spelling errors. Electronically signed by: Malik More M.D. 05/06/2023 4:32 PM
[2023-05-06 16:46] LABS: Albumin Level 3.2 gm/dl (3.4-5.0); BUN Creatinine Ratio 13.7 (10-20); Bilirubin,Total 0.5 mg/dl (0.2-1.0); Calcium 8.3 mg/dl (8.6-10.3); Creatinine Clr Calc Pharmacy 148.6 ml/min; Est GFR (African American) 123.1 ml/min; Est GFR (Non-African American) 106.2 ml/min; Globulin 3.1 gm/dl (2.5-4.0); Total Protein 6.3 gm/dl (6.0-8.3)
--- NOTE | 2023-05-06 19:15 | Hospitalist Consultation ---
Date of Consultation May 06, 2023 Assessment & Plan (1) Fever: No alternative source of fever identified from history of basic infective workup - however objectively he is otherwise improving with procalcitonin and WBC getting better. Inflammatory markers taken to consider trending if ongoing fevers. Atelectasis suspect from CXR and encouraged patient to use incentive spirometer at bedside - he also reports being out of bed most of today. Will repeat CXR in AM with PA/lateral views per radiology recommendations. Myalgias somewhat concerning for viral etiology therefore Biofire taken however this was also negative and no specific respiratory symptoms. Total CK normal. If having recurrent fever tomorrow would consider repeat blood cultures and repeat CT Abdo/Pelvis but I do not see an urgent need for this today given his labs look remarkably better. Less likely antibiotic related given lack of any discernable rash and no need to change from Zosyn at this time. (2) Acute appendicitis: s/p lap appendectomy 05/04/2023 Continue IV Zosyn per surgery recommendations (3) Elevated blood pressure reading: In the setting of acute illness I am not concerned about his current blood pressure and do not recommend medical treatment for this. Plan VTE Prophylaxis - low risk Diet - per surgery recommendations Disposition - continue on med/surg History of Present Illness Reason for Consultation: Ongoing Fever and Elevated BP Attending Physician: Kaveh Davis MD History of Present Illness Sharath Medley is a 33 year old male who presented to the ER on May 04, 2023 with 24-36 hours of worsening lower abdominal pain. He was diagnosed with acute appendicitis confirmed during his operation with acute near gangrenous purulent appendix seen and removed laparoscopically performed by Dr Davis on May 04. He reports his abdomen feels mildly worse today than yesterday but no big change. He has little appetite but is managing to eat and drink without nausea or vomiting. He reports having normal bowel movements post surgery. Generalized myalgias without swelling was not present on admission but started last night along with his recurrent fever. Blood cultures were taken on admission and are negative at 48 hours. Allergies Allergy/AdvReac Type Severity Reaction Status Date / Time No Known Allergies Allergy Unverified 05/04/23 01:12 Home Medications Medication Instructions Recorded Confirmed Type No Known Home Medications 05/04/23 05/04/23 History Patient History Medical History (Updated 05/07/23 @ 06:15 by Dontae Watt MD) No known health problems Surgical History (Updated 05/04/23 @ 11:15 by Radha Brown RN) History of throat surgery "I swallowed a turkey call" History of hand surgery right hand Social History Smoking Status: Never smoker Second Hand Exposure: No; Do You Dip or Chew Tobacco: No; Tobacco Cessation Education Requested by Patient: No Hx Alcohol Use: No Hx Substance Use: No Preferred Language: Amharic Communication Ability: Effective Special Effects Person Required: No Beliefs That Will Affect Care: None Current Living Situation: Spouse Other Information That Helps Us Care for You: No Feels Safe at Home: Yes Safety Concerns: Feels Safe At This Time Assistive Devices: None Review of Systems Review of Systems: All systems reviewed & are unremarkable except as noted in HPI & below Physical Exam Constitutional: WD/WN, vitals as above Eyes: + anicteric sclerae; normal pupil size ENMT: external ear and nose normal, oropharynx normal Neck: trachea midline, no thyromegaly Respiratory: normal respiratory effort, lungs clear to auscultation Cardiovascular: RRR, no murmur, no edema Gastrointestinal (Abdomen): Surgical dressings C/D/I Generalized mild tenderness on palpation without guarding or rebound tenderness Musculoskeletal: no cyanosis or clubbing, extremities motor strength 5/5 Skin: no rashes, warm and dry Neurologic: moves all extremities and awake; not confused Psychiatric: A+Ox3, euthymic affect Lymphatic: no cervical lymphadenopathy Results & Data Results & Data Vital Signs (Past 12 Hours) Vital Signs Temp Pulse Resp BP Pulse Ox O2 Del Method 05/06/23 18:01 38.1 C H 142/74 H 05/06/23 15:30 39 C H 86 157/84 H 98 Room Air 05/06/23 14:48 37.9 C H 74 16 162/83 H 98 Room Air 05/06/23 10:03 37.6 C H 05/06/23 07:48 38.7 C H 96 H 24 134/73 95 Room Air Laboratory Results Abnormal lab results 05/06/23 Range/Units 16:14 WBC 12.20 H (4.8-10.8) K/ul RBC 4.10 L (4.70-6.10) M/uL Hgb 11.3 L (14.0-18.0) g/dl Hct 35.3 L (42.0-52.0) % Neut # (Auto) 10.47 H (1.40-6.50) K/uL Lymph # (Auto) 0.68 L (1.20-3.40) K/uL [place] # (Auto) 0.90 H (0.11-0.59) K/uL ESR 81 H (0-15) mm/hr Calcium 8.3 L (8.6-10.3) mg/dl C-Reactive Protein 23.95 H (0-0.5) mg/dl Albumin 3.2 L (3.4-5.0) gm/dl Procalcitonin 4.51 H (0-0.5) ng/ml Diagnostic Findings XR chest 1V portable HISTORY: 33 years-old Male Fever acute fever COMPARISON: CT abdomen and pelvis 05/04/2023 TECHNIQUE: AP view of the chest FINDINGS: Cardiomediastinal and hilar silhouettes are within normal limits. Subsegmental left infrahilar linear opacity. No pneumothorax, pleural effusion or pulmonary edema. The bones appear normal. IMPRESSION: Subsegmental linear left infrahilar opacity favors atelectasis. Findings could be correlated with PA and lateral views of the chest to exclude pneumonia. PG Care Time/CCT Total # of Minutes Spent Total Time Spent with Patient: Total time spent is greater than 50% in coordination of care (as documented) at patient's floor/unit and/or counseling patient: Coding Level of Care Code 59008 IN/OBS CONSULT LVL 4,60M Diagnoses Fever, unspecified fever cause R50.9 Fever type: unspecified Acute appendicitis K35.80 Acute appendicitis type: with generalized peritonitis Elevated blood pressure reading R03.0 (1) Fever Fever type: unspecified Qualified Code(s): R50.9 - Fever, unspecified (2) Acute appendicitis Acute appendicitis type: with generalized peritonitis
[2023-05-06 19:37] LABS: C Reactive Protein 23.95 mg/dl (0-0.5); Magnesium 1.7 mg/dl (1.7-2.4)
[2023-05-06 20:56] LABS: Adenovirus PCR Not Detected (NotDetected); Bordetella parapertussis PCR Not Detected (NotDetected); Bordetella pertussis PCR Not Detected (NotDetected); Chlamydia pneumoniae PCR Not Detected (NotDetected); Coronavirus 229E PCR Not Detected (NotDetected); Coronavirus CoV-2 (COVID19)PCR Not Detected (NotDetected); Coronavirus HKU1 PCR Not Detected (NotDetected); Coronavirus NL63 PCR Not Detected (NotDetected); Coronavirus OC43PCR Not Detected (NotDetected); Human Metapneumovirus PCR Not Detected (NotDetected); Influenza A PCR Not Detected (NotDetected); Influenza B PCR Not Detected (NotDetected); Mycoplasma pneumoniae PCR Not Detected (NotDetected); Parainfluenza Virus 1 PCR Not Detected (NotDetected); Parainfluenza Virus 2 PCR Not Detected (NotDetected); Parainfluenza Virus 3 PCR Not Detected (NotDetected); Parainfluenza Virus 4 PCR Not Detected (NotDetected); Respiratory Syncytial VirusPCR Not Detected (NotDetected); Rhinovirus/Enterovirus PCR Not Detected (NotDetected)
[2023-05-07] MEDS: ACETAMINOPHEN 325 MG TAB PO PRN ×3 (00:06→18:10)
[2023-05-07] MEDS: HYDROmorphone INJ 1 MG/ML SYRINGE IV PRN ×4 (02:45→21:34)
[2023-05-07] MEDS: LACTATED RINGER'S 1,000 ML IV SCH ×2 (02:46→13:39)
[2023-05-07] MEDS: PIPERACILLIN/TAZOBACTAM 4.5 GM in DEXTROSE 5% MINI-B 100 ML IV SCH ×3 (02:46→18:10)
[2023-05-07] MEDS: oxyCODONE HCL IR 5 MG TAB (IMMEDIATE RELEASE) PO PRN ×3 (06:29→18:10)
[2023-05-07 07:35] LABS: Basophils # (auto) 0.05 K/uL (0.00-0.20); Basophils % (auto) 0.4 %; Eosinophils % (auto) 0.8 %; Hematocrit (blood only) 33.4 % (42.0-52.0); Hemoglobin 11.1 g/dl (14.0-18.0); Immature Granulocytes # (auto) 0.09 K/uL (0.01-0.20); Immature Granulocytes % (auto) 0.7 %; Lymphocytes # (auto) 0.79 K/uL (1.20-3.40); Lymphocytes % (auto) 6.5 %; Mean Corpuscular Hemoglobin 28.2 pg (25.0-34.0); Mean Corpuscular Hgb Conc 33.2 g/dL (32.0-36.0); Mean Platelet Volume 10.2 fL (9.4-12.4); Monocytes # (auto) 1.14 K/uL (0.11-0.59); Monocytes % (auto) 9.3 %; Neutrophils # (auto) 10.04 K/uL (1.40-6.50); Neutrophils % (auto) 82.3 %; Platelet Count 244 K/uL (130-400); RDW Coefficient of Variation 12.5 % (11.5-14.5); RDW Standard Deviation 38.4 fL (36.4-46.3); Red Blood Count 3.93 M/uL (4.70-6.10); White Blood Count 12.21 K/ul (4.8-10.8)
[2023-05-07] MEDS: IBUPROFEN 600 MG TAB PO PRN (08:17)
--- NOTE | 2023-05-07 09:02 | Hospitalist Progress Note ---
Date of Service May 07, 2023 Assessment & Plan (1) Fever: Plan: No alternative source of fever identified from history of basic infective workup - however objectively he is otherwise improving with procalcitonin and WBC getting better. Inflammatory markers taken to consider trending if ongoing fevers - ESR and CRP reviewed and are elevated. Atelectasis suspect from CXR and encouraged patient to use incentive spirometer at bedside - CXR pending today with PA/lateral views per radiology recommendations. Myalgias somewhat concerning for viral etiology therefore Biofire taken however this was also negative and no specific respiratory symptoms. Total CK normal. If having ongoing fever consider repeat blood cultures and repeat CT Abdo/Pelvis Less likely antibiotic related given lack of any discernable rash and no need to change from Zosyn at this time. -small spot on forehead not consistent with a drug rash Blood cultures from 05/04 have remained negative (2) Acute appendicitis: Plan: s/p lap appendectomy 05/04/2023 Continue IV Zosyn per surgery recommendations Fever likely related to robust inflammatory response from appendicitis, WBC and Procal improved, not febrile throughout the day today. Agree with surgical team regarding repeat CT if persisting. no evidence of allergic reaction to the antibiotic - this was a question from his , discussed. Too early for drug fever. respiratory biofire was negative myalgias - likely part of systemic inflammatory response, seem to be improving, CK was normal CXR with some atelectasis - reviewed CXR Pa/lat also with some atelectasis, doubt it represents pneumonia since no cough or hypoxia (and is on appropriate antibiotic to cover postop pneumonia if it were present) - counseled continue ambulation and IS Small quarter-sized vesicular lesion on forehead - most likely this is a contact dermatitis - ordered TAC cream. Less likely herpetic lesion - HSV or VZV however not painful or erythematous seems less likely -monitor (3) Elevated blood pressure reading: Plan: In the setting of acute illness I am not concerned about his current blood pressure and do not recommend medical treatment for this. Plan VTE Prophylaxis - low risk Diet - per surgery recommendations Disposition - continue on med/surg Admission and Anticipated Discharge Date Admission Date: May 04, 2023 Subjective Remained febrile overnight but temp normal since this AM quarter-sized lesion on forehead not itchy or painful. No hx similar lesion, is new since surgery, no hx HSV lesions No cough shortness of breath Right lower quadrant abdominal pain progressively improving, eating and drinking without difficulty, diffuse myalgias have caused more pain than the right lower quadrant in the last few days but also improved Physical Exam 2 Physical Exam: PHYSICAL EXAMINATION Last 24h vital signs reviewed, see documentation in flowsheet General: comfortable appearing, no distress HEENT: Normocephalic, atraumatic, pupils round and equal, sclerae anicteric, no conjunctival injection, moist mucus membranes Lungs: Normal respiratory effort. Clear to auscultation bilaterally. No RRW Heart: Regular rate and rhythm, no murmurs. No JVD Abdomen: Soft, ttp RLQ no rigidity, nondistended. Bowel sounds present. Extremities: Warm, dry, well-perfused. No extremity edema. Neuro: Alert and oriented x 4, face symmetric, moves 4 extremities well Skin: no generalized rash. 2.5 cm vesicular rash, round distribution, central forehead just above brow. no erythema or drainage Psych: Normal affect and behavior Results & Data Results & Data Vital Signs (Past 12 Hours) Vital Signs Temp Pulse Resp BP Pulse Ox O2 Del Method 05/07/23 07:32 37.1 C 87 17 147/75 H 96 Room Air 05/07/23 05:28 37.8 C H 05/07/23 04:04 37.4 C 05/07/23 02:43 39.1 C H 05/07/23 00:05 39.1 C H 05/06/23 23:25 Room Air 05/06/23 22:17 38.1 C H 82 18 152/84 H 99 Room Air Laboratory Results 05/07/23 07:14 05/06/23 16:14 PG Care Time/CCT Total # of Minutes Spent Total Time Spent with Patient: Total time spent is greater than 50% in coordination of care (as documented) at patient's floor/unit and/or counseling patient: Coding Level of Care Code 33740 SUB INP/OBS CARE 2/35MIN Diagnoses Fever, unspecified fever cause R50.9 Fever type: unspecified Acute appendicitis K35.80 Acute appendicitis type: with generalized peritonitis Elevated blood pressure reading R03.0 (1) Fever Fever type: unspecified Qualified Code(s): R50.9 - Fever, unspecified (2) Acute appendicitis Acute appendicitis type: with generalized peritonitis
--- NOTE | 2023-05-07 09:28 | XRay Report ---
XR chest 2V PA/lateral HISTORY: fever COMPARISON: Chest 05/06/2023. FINDINGS: No pneumothorax. No pleural effusions. The heart remains normal in size. No acute fractures identified. Bilateral perihilar linear densities. No evidence for pulmonary edema. IMPRESSION: Bilateral perihilar linear densities are noted. This could represent atelectasis or possibly developi ng pneumonia. ACT 112: Negative or not required by law. Electronically signed by: Atilio Healy M.D. 05/07/2023 9:27 AM
--- NOTE | 2023-05-07 09:31 | Surgery Progress Note ---
Date of Service May 07, 2023 Assessment & Plan (1) Acute appendicitis: Plan: appreciate medicine consult IS con't IV abx if spikes tonight may get CT in AM PRISCILLA draining and not purulent Admission and Anticipated Discharge Date Admission Date: May 04, 2023 Subjective feels better febrile last night taking po OK Review of Systems Constitutional: + fever and + anorexia; no chills Respiratory: no cough and no dyspnea Cardiovascular: no chest pain Gastrointestinal: + abdominal pain; no nausea and no vomit ing Genitourinary: no dysuria Neurologic: no localized weakness and no generalized weakness Psychiatric: no behavioral changes Physical Exam Constitutional: WD/WN, vitals as above Eyes: PERRL, conjunctivae normal, anicteric sclerae Respiratory: normal respiratory effort, lungs clear to auscultation Cardiovascular: RRR, no murmur, no edema Gastrointestinal (Abdomen): Inspection/Auscultation: abdomen normal to inspection, + abdomen distended and normal bowel sounds Percussion/Palpation: + abdomen tender and abdomen soft; no guarding and abdomen not rigid PRISCILLA serosanguinous Musculoskeletal: Head/Neck/Chest: normocephalic and head atraumatic Skin: no rashes, warm and dry Results & Data Vital Signs (Past 12 Hours) Vital Signs Temp Pulse Resp BP Pulse Ox O2 Del Method 05/07/23 07:32 37.1 C 87 17 147/75 H 96 Room Air 05/07/23 05:28 37.8 C H 05/07/23 04:04 37.4 C 05/07/23 02:43 39.1 C H 05/07/23 00:05 39.1 C H 05/06/23 23:25 Room Air 05/06/23 22:17 38.1 C H 82 18 152/84 H 99 Room Air Diagnostic Findings XR chest 2V PA/lateral HISTORY: fever COMPARISON: Chest 05/06/2023. FINDINGS: No pneumothorax. No pleural effusions. The heart remains normal in size. No acute fractures identified. Bilateral perihilar linear densities. No evidence for pulmonary edema. IMPRESSION: Bilateral perihilar linear densities are noted. This could represent atelectasis or possibly developing pneumonia. (1) Acute appendicitis Acute appendicitis type: with generalized peritonitis
[2023-05-07] MEDS: DOCUSATE SODIUM 100 MG CAP PO SCH ×2 (09:33→21:35)
[2023-05-07] MEDS: TRIAMCINOLONE ACET 0.1% CR 15 GM TUBE EXT SCH ×2 (15:34→21:33)
[2023-05-08] MEDS: LACTATED RINGER'S 1,000 ML IV SCH ×3 (00:41→22:02)
[2023-05-08] MEDS: oxyCODONE HCL IR 5 MG TAB (IMMEDIATE RELEASE) PO PRN ×4 (01:37→19:24)
[2023-05-08] MEDS: PIPERACILLIN/TAZOBACTAM 4.5 GM in DEXTROSE 5% MINI-B 100 ML IV SCH ×3 (01:37→18:27)
[2023-05-08] MEDS: ACETAMINOPHEN 325 MG TAB PO PRN (03:25)
[2023-05-08] MEDS: HYDROmorphone INJ 1 MG/ML SYRINGE IV PRN ×4 (04:00→22:44)
[2023-05-08] MEDS: DOCUSATE SODIUM 100 MG CAP PO SCH ×2 (08:44→21:07)
[2023-05-08] MEDS: TRIAMCINOLONE ACET 0.1% CR 15 GM TUBE EXT SCH ×2 (08:44→21:06)
[2023-05-08] MEDS: IBUPROFEN 600 MG TAB PO PRN (13:54)
--- NOTE | 2023-05-08 14:42 | Surgery Progress Note ---
Date of Service May 08, 2023 Assessment & Plan (1) Acute appendicitis: Plan: con't abx ovver the weekend if spikes again may repeat CT scan appreciate medicines input Admission and Anticipated Discharge Date Admission Date: May 04, 2023 Subjective fever and chills again last night but better this AM WBC down to 12 taking po and no N/V Review of Systems Constitutional: + fever and + chills; no anorexia Respiratory: no cough and no dyspnea Cardiovascular: no chest pain Gastrointestinal: + abdominal pain; no nausea and no vomit ing Genitourinary: no dysuria Physical Exam Constitutional: WD/WN, vitals as above Respiratory: normal respiratory effort, lungs clear to auscultation Cardiovascular: RRR, no murmur, no edema Gastrointestinal (Abdomen): Inspection/Auscultation: abdomen normal to inspection and normal bowel sounds; abdomen not distended Percussion/Palpation: + abdomen tender and abdomen soft; no guarding and abdomen not rigid Musculoskeletal: Head/Neck/Chest: normocephalic and head atraumatic Results & Data Vital Signs (Past 12 Hours) Vital Signs Temp Pulse Resp BP BP Pulse Ox O2 Del Method 05/08/23 13:28 36.9 C 70 16 154/89 H 97 Room Air 05/08/23 11:09 37 C 76 16 132/78 95 Room Air 05/08/23 07:33 36.9 C 66 15 162/94 H 96 Room Air 05/08/23 05:44 37.3 C 74 18 152/84 H 97 Room Air 05/08/23 03:23 39.3 C H 89 20 190/93 H 96 Room Air (1) Acute appendicitis Acute appendicitis type: with generalized peritonitis
--- NOTE | 2023-05-08 18:14 | Hospitalist Progress Note ---
Date of Service May 08, 2023 Assessment & Plan (1) Fever: Plan: No alternative source of fever identified from history of basic infective workup - however objectively he is otherwise improving with procalcitonin and WBC getting better. Inflammatory markers taken to consider trending if ongoing fevers - ESR and CRP reviewed and are elevated. Atelectasis suspect from CXR and encouraged patient to use incentive spirometer at bedside - CXR with PA/lateral views reviewed also looks like atelectasis. Myalgias related to inflammatory state/fevers and improved. Biofire negative Total CK normal. If having ongoing fever consider repeat blood cultures and repeat CT Abdo/Pelvis - discussed with Dr. Davis at bedside - consider over w/e if fevers persist unlikely antibiotic related given lack of any discernable rash and no need to change from Zosyn at this time. -small spot on forehead and folliculitis on back not consistent with a drug rash Blood cultures from 05/04 have remained negative Ordered AM CBC BMP Small quarter-sized vesicular lesion on forehead - most likely this is a contact dermatitis - ordered TAC cream. Less likely herpetic lesion - HSV or VZV however not painful or erythematous seems less likely -monitor (2) Acute appendicitis: Plan: s/p lap appendectomy 05/04/2023 Continue IV Zosyn per surgery recommendations discussed with surgeon, patient, his today (3) Elevated blood pressure reading: Plan: In the setting of acute illness I am not concerned about his current blood pressure and do not recommend medical treatment for this. Plan VTE Prophylaxis - low risk, ambulating frequently Admission and Anticipated Discharge Date Admission Date: May 04, 2023 Subjective generally feeling better myalgias much better but having rigors during fever overnight. forehead lesion unchanged not painful or itchy. has heat rash on back not itchy or painful. nothing on anterior trunk or arms/legs RLQ pain persists unchanged from surgery. no N/V. eating and drinking ok. no cough/dyspnea Physical Exam Physical Exam: PHYSICAL EXAMINATION Last 24h vital signs reviewed, see documentation in flowsheet General: comfortable appearing, no distress HEENT: Normocephalic, atraumatic, pupils round and equal, sclerae anicteric, no conjunctival injection, moist mucus membranes Lungs: Normal respiratory effort. Heart: Abdomen: Soft, ttp RLQ no rigidity, nondistended. Bowel sounds present. PRISCILLA RLQ serous drainage Extremities: Warm, dry, well-perfused. No extremity edema. Neuro: Alert and oriented x 4, face symmetric, moves 4 extremities well Skin: no generalized rash except mild folliculitis on back. 2.5 cm vesicular rash, round distribution, central forehead just above brow maybe slightly larger. no erythema or drainage Psych: Normal affect and behavior Results & Data Results & Data Vital Signs (Past 12 Hours) Vital Signs Temp Pulse Resp BP BP Pulse Ox O2 Del Method 05/08/23 13:28 36.9 C 70 16 154/89 H 97 Room Air 05/08/23 11:09 37 C 76 16 132/78 95 Room Air 05/08/23 07:33 36.9 C 66 15 162/94 H 96 Room Air PG Care Time/CCT Total # of Minutes Spent Total Time Spent with Patient: Total time spent is greater than 50% in coordination of care (as documented) at patient's floor/unit and/or counseling patient: Coding Level of Care Code 46874 SUB INP/OBS CARE 3/50MIN Diagnoses Fever, unspecified fever cause R50.9 Fever type: unspecified Acute appendicitis K35.80 Acute appendicitis type: with generalized peritonitis Elevated blood pressure reading R03.0 (1) Fever Fever type: unspecified Qualified Code(s): R50.9 - Fever, unspecified (2) Acute appendicitis Acute appendicitis type: with generalized peritonitis
[2023-05-08 20:45] LABS: A calco-baum cmplx NotReported Not Detected (NotDetected); Bact fragilis Not Reported Not Detected (NotDetected); Blood Culture Id Panel PCR Panel Negative (NotDetected); C auris Not Reported Not Detected (NotDetected); Calbicans Not Reported Not Detected (NotDetected); Candida glabrata Not Reported Not Detected (NotDetected); Candida krusei Not Reported Not Detected (NotDetected); Cneoformans/gatti Not Reported Not Detected (NotDetected); Cparapsilosis Not Reported Not Detected (NotDetected); E cloacae compx Not Reported Not Detected (NotDetected); Efaecalis Not Reported Not Detected (NotDetected); Efaecium Not Reported Not Detected (NotDetected); Enterobacterales Not Reported Not Detected (NotDetected); Escherichia coli Not Reported Not Detected (NotDetected); H influenzae Not Reported Not Detected (NotDetected); K aerogenes Not Reported Not Detected (NotDetected); Koxytoca Not Reported Not Detected (NotDetected); Kpneumoniae grp Not Reported Not Detected (NotDetected); Lmonocyt Not Reported Not Detected (NotDetected); N meningitidis Not Reported Not Detected (NotDetected); P aeruginosa Not Reported Not Detected (NotDetected); Proteus spp Not Reported Not Detected (NotDetected); Salmonella spp Not Reported Not Detected (NotDetected); Smarcescens Not Reported Not Detected (NotDetected); Staph lugdunensis Not Reported Not Detected (NotDetected); Staph spp. Not Reported Not Detected (NotDetected); Staphaureus Not Reported Not Detected (NotDetected); Staphepi Not Reported Not Detected (NotDetected); Stenmaltophilia Not Reported Not Detected (NotDetected); Strep agal(GrpB) Not Reported Not Detected (NotDetected); Strep pneum Not Reported Not Detected (NotDetected); Strep pyog (GrpA) Not Reported Not Detected (NotDetected); Strep spp Not Reported Not Detected (NotDetected)
[2023-05-09] MEDS: PIPERACILLIN/TAZOBACTAM 4.5 GM in DEXTROSE 5% MINI-B 100 ML IV SCH ×3 (02:06→17:08)
[2023-05-09] MEDS: HYDROmorphone INJ 1 MG/ML SYRINGE IV PRN ×3 (04:39→18:09)
--- NOTE | 2023-05-09 06:05 | Surgery Progress Note ---
Date of Service May 09, 2023 Assessment & Plan (1) Acute appendicitis: Plan: Status post appendectomy on 05/04/2023 (postop day #5) Continue analgesics Continue antiemetics Continue diet as tolerated Continue to mobilize as able Patient was noted to have a gangrenous appendix. Plans noted by primary surgical team to continue antibiotics through the weekend. Patient had blood cultures drawn on 05/04/2023. 1 out of 2 cultures grew Gram negative rods. If patient were to have recurrent fevers consideration should be given to performing a CT scan of the abdomen and pelvis for further evaluation along with potentially repeating blood cultures. Admission and Anticipated Discharge Date Admission Date: May 04, 2023 Supervising Physician Co-Signing Physician Notes I have seen and examined this patient. He seems to be feeling improved. He denies N/V, F/C since yesterday early am. He reports passing flatus and having BMs. PRISCILLA drain is mostly serous with some thick, murky component indicative of some purulent tinged fluid. His WBC did increase to 13.35 today. He should be kept for further monitoring and F/U CBC in the am. He remains on Zosyn. If he remains afebrile and leukocytosis resolves, he may discharged at that time with outpatient follow up to Dr. Davis. Continue outpatient antibiotics. Should fever return or leukocytosis worsens or persists, will f/u a repeat CT A/P. Will f/u in the am. Subjective Patient is currently resting comfortably in bed. He notes that he is tolerating diet without worsening abdominal pain or nausea or vomiting. He is voiding without difficulty. He notes minimal abdominal pain. He notes that he has been ambulating without difficulty. Patient's most recent recorded fever was on 05/08/2023 at approximately 3:20 AM. Physical Exam Gastrointestinal (Abdomen): Abdomen is soft and nondistended. Patient is appropriate discomfort/pain near surgical incisions. His incisions appear clean, dry, and intact. PRISCILLA drain is in place draining serous fluid and has drained approximate 80 cc over the past 24 hours. Results & Data Vital Signs (Past 12 Hours) Vital Signs Temp Pulse Resp BP Pulse Ox O2 Del Method 05/09/23 04:49 37.3 C 05/08/23 19:25 Room Air 05/08/23 19:25 36.8 C 75 16 143/78 H 97 Room Air PG Care Time/CCT Total # of Minutes Spent Total Time Spent with Patient: Total time spent is greater than 50% in coordination of care (as documented) at patient's floor/unit and/or counseling patient: Coding Level of Care Code 81244 Post Operative Follow-Up Diagnoses Acute appendicitis K35.80 Acute appendicitis type: with generalized peritonitis (1) Acute appendicitis Acute appendicitis type: with generalized peritonitis
[2023-05-09] MEDS: oxyCODONE HCL IR 5 MG TAB (IMMEDIATE RELEASE) PO PRN ×4 (06:13→21:23)
[2023-05-09 07:07] LABS: Hematocrit (blood only) 34.2 % (42.0-52.0); Hemoglobin 11.4 g/dl (14.0-18.0); Mean Corpuscular Hemoglobin 28.1 pg (25.0-34.0); Mean Corpuscular Hgb Conc 33.3 g/dL (32.0-36.0); Mean Corpuscular Volume 84.2 fL (80.0-100.0); Mean Platelet Volume 9.7 fL (9.4-12.4); Platelet Count 334 K/uL (130-400); RDW Coefficient of Variation 12.6 % (11.5-14.5); RDW Standard Deviation 38.4 fL (36.4-46.3); Red Blood Count 4.06 M/uL (4.70-6.10); White Blood Count 13.35 K/ul (4.8-10.8)
[2023-05-09 07:39] LABS: BUN Creatinine Ratio 9.9 (10-20); Calcium 8.8 mg/dl (8.6-10.3); Creatinine Clr Calc Pharmacy 155.1 ml/min; Est GFR (African American) 129.7 ml/min; Est GFR (Non-African American) 111.9 ml/min; Potassium 4.4 mmol/L (3.5-5.1)
[2023-05-09] MEDS: DOCUSATE SODIUM 100 MG CAP PO SCH ×2 (08:06→20:45)
[2023-05-09] MEDS: LACTATED RINGER'S 1,000 ML IV SCH ×2 (08:15→18:07)
[2023-05-09] MEDS: TRIAMCINOLONE ACET 0.1% CR 15 GM TUBE EXT SCH ×2 (08:16→19:51)
--- NOTE | 2023-05-09 17:20 | Hospitalist Progress Note ---
Date of Service May 09, 2023 Assessment & Plan (1) Fever: Plan: No alternative source of fever identified from history of basic infective workup - however objectively he is otherwise improving with procalcitonin and WBC getting better. Inflammatory markers taken to consider trending if ongoing fevers - ESR and CRP reviewed and are elevated. Atelectasis suspect from CXR and encouraged patient to use incentive spirometer at bedside - CXR with PA/lateral views reviewed also looks like atelectasis. Myalgias related to inflammatory state/fevers and improved. Biofire negative Total CK normal. If having ongoing fever consider repeat blood cultures and repeat CT Abdo/Pelvis - discussed with Dr. Davis at bedside - consider over w/e if fevers persist unlikely antibiotic related given lack of any discernable rash and no need to change from Zosyn at this time. -small spot on forehead and folliculitis on back not consistent with a drug rash Blood cultures from 05/04 have grown a gram-positive bacillus, very late, DNA PCR panel was negative, no sensitivities being performed per micro lab. This could be a low-grade bacteremia like a difficult to grow anaerobe, could be a corynebacterium which is a skin contaminant. regardless he will have had 7 days of appropriate IV antibiotics as of 05/10 ( pip-tazo), and assume on discharge he will be changed to a similarly broad oral antibiotic for mop up, for example Augmentin would be appropriate. 14 days of total antibiotics would be appropriate for a gram-negative bacteremia. for completeness I celestino a second set of blood cultures this morning to document clearance. Reviewed AM CBC BMP - leukocytosis persists, which is not surprising white blood count similar at 13 K Small quarter-sized vesicular lesion on forehead - most likely this is a contact dermatitis - ordered TAC cream. Less likely herpetic lesion - HSV or VZV however not painful or erythematous. not progressing. -monitor - Hospitalist will follow peripherally at this time, I will review his fever curve and blood cultures to make sure repeat cultures remain negative. please call me with any questions or concerns (2) Acute appendicitis: Plan: s/p lap appendectomy 05/04/2023 Continue IV Zosyn per surgery recommendations, see above (3) Elevated blood pressure reading: Plan: In the setting of acute illness I am not concerned about his current blood pressure and do not recommend medical treatment for this. - follow-up in outpatient setting for blood pressure check after resolution of acute illness Plan VTE Prophylaxis - low risk, ambulating frequently Admission and Anticipated Discharge Date Admission Date: May 04, 2023 Subjective Feeling better overall. RLQ pain improved. No further myalgias / rigors / fever overnight. Forehead lesion unchanged nad not painful or itchy. Physical Exam 2 Physical Exam: PHYSICAL EXAMINATION Last 24h vital signs reviewed, see documentation in flowsheet General: comfortable appearing, no distress HEENT: Normocephalic, atraumatic, pupils round and equal, sclerae anicteric, no conjunctival injection, moist mucus membranes Lungs: Normal respiratory effort. Heart: Abdomen: Soft, nondistended. Extremities: Warm, dry, well-perfused. No extremity edema. Neuro: Alert and oriented x 4, face symmetric, moves 4 extremities well skin: 2.5 cm round lesion forehead just above central brow, vesicular lesions without erythema or drainage Psych: Normal affect and behavior Results & Data Results & Data Vital Signs (Past 12 Hours) Vital Signs Temp Pulse Resp BP Pulse Ox O2 Del Method 05/09/23 15:48 37.4 C 67 16 169/103 H 98 Room Air 05/09/23 08:03 37.2 C 64 16 164/104 H 97 Room Air Laboratory Results 05/09/23 06:48 05/09/23 06:48 PG Care Time/CCT Total # of Minutes Spent Total Time Spent with Patient: Total time spent is greater than 50% in coordination of care (as documented) at patient's floor/unit and/or counseling patient: Coding Level of Care Code 90181 SUB INP/OBS CARE 2/35MIN Diagnoses Fever, unspecified fever cause R50.9 Fever type: unspecified Acute appendicitis K35.80 Acute appendicitis type: with generalized peritonitis Elevated blood pressure reading R03.0 (1) Fever Fever type: unspecified Qualified Code(s): R50.9 - Fever, unspecified (2) Acute appendicitis Acute appendicitis type: with generalized peritonitis
[2023-05-09] MEDS: ACETAMINOPHEN 325 MG TAB PO PRN (21:22)
[2023-05-10] MEDS: HYDROmorphone INJ 1 MG/ML SYRINGE IV PRN (00:14)
[2023-05-10] MEDS: PIPERACILLIN/TAZOBACTAM 4.5 GM in DEXTROSE 5% MINI-B 100 ML IV SCH ×2 (02:29→09:44)
[2023-05-10] MEDS: ACETAMINOPHEN 325 MG TAB PO PRN ×2 (04:45→09:50)
[2023-05-10] MEDS: oxyCODONE HCL IR 5 MG TAB (IMMEDIATE RELEASE) PO PRN ×2 (04:45→09:50)
--- NOTE | 2023-05-10 05:11 | Surgery Progress Note ---
Date of Service May 10, 2023 Assessment & Plan (1) Acute appendicitis: Plan: Status post appendectomy on 05/04/2023 (postop day #6) Continue analgesics Continue antiemetics Continue diet as tolerated Continue to ambulate as desired Patient was noted to have a gangrenous appendix. Plans noted by primary surgical team to continue antibiotics through the weekend. Patient had blood cultures drawn on 05/04/2023. 1 out of 2 cultures grew Gram positive rods. Check a.m. labs when available If patient were to have recurrent fevers consideration should be given to performing a CT scan of the abdomen and pelvis for further evaluation along with potentially repeating blood cultures. Of note, patient has not had any fevers since 05/08/2023 at approximately 3:20 AM. Admission and Anticipated Discharge Date Admission Date: May 04, 2023 Supervising Physician Co-Signing Physician Notes Patient wants to go home. Has remained afebrile for 2 days. WBC just about normal (within lab error range. WBC is 10.81 today, upper limit of normal is 10.8). Continue with drain as it is draining more than 30cc's/24 hour period. Gangrenous appendix at high risk for abscess formation. Had post op fevers. Would discharge on Augmentin. WBC bumped up yesterday, almost normal today, for additional precaution, will order a CBC to be obtained as an outpatient tomorrow. Patient should F/U with Dr. Davis for outpatient evaluation and drain removal when he prefers. F/U with PCP to evaluate for return of BP's to baseline. Subjective Patient is resting comfortably in bed. He denies any fevers, shakes, or chills. He is tolerating solid food. He notes his bowels are moving. He has not had any nausea or vomiting. He is voiding without difficulty. He has been ambulating in the hallway. Physical Exam Gastrointestinal (Abdomen): Abdomen is soft and nondistended. There is minimal pain with palpation other than some pain near his surgical incisions. He has a PRISCILLA drain in place draining serous fluid and is drained approximately 50 cc over the past 24 hours. Results & Data Vital Signs (Past 12 Hours) Vital Signs Temp Pulse Resp BP Pulse Ox O2 Del Method 05/09/23 19:50 37.3 C 80 16 145/81 H 97 Room Air PG Care Time/CCT Total # of Minutes Spent Total Time Spent with Patient: Total time spent is greater than 50% in coordination of care (as documented) at patient's floor/unit and/or counseling patient: Coding Level of Care Code 52743 Post Operative Follow-Up Diagnoses Acute appendicitis K35.80 Acute appendicitis type: with generalized peritonitis (1) Acute appendicitis Acute appendicitis type: with generalized peritonitis
[2023-05-10 06:20] LABS: Basophils # (auto) 0.05 K/uL (0.00-0.20); Basophils % (auto) 0.5 %; Eosinophils # (auto) 0.33 K/uL (0.00-0.50); Eosinophils % (auto) 3.1 %; Hematocrit (blood only) 35.8 % (42.0-52.0); Hemoglobin 11.8 g/dl (14.0-18.0); Immature Granulocytes # (auto) 0.15 K/uL (0.01-0.20); Immature Granulocytes % (auto) 1.4 %; Lymphocytes % (auto) 11.1 %; Mean Corpuscular Hemoglobin 27.9 pg (25.0-34.0); Mean Corpuscular Volume 84.6 fL (80.0-100.0); Mean Platelet Volume 9.6 fL (9.4-12.4); Monocytes # (auto) 1.06 K/uL (0.11-0.59); Monocytes % (auto) 9.8 %; Neutrophils # (auto) 8.02 K/uL (1.40-6.50); Neutrophils % (auto) 74.1 %; Platelet Count 363 K/uL (130-400); RDW Coefficient of Variation 12.6 % (11.5-14.5); RDW Standard Deviation 38.7 fL (36.4-46.3); Red Blood Count 4.23 M/uL (4.70-6.10); White Blood Count 10.81 K/ul (4.8-10.8)
[2023-05-10] MEDS: DOCUSATE SODIUM 100 MG CAP PO SCH (08:37)
[2023-05-10] MEDS: TRIAMCINOLONE ACET 0.1% CR 15 GM TUBE EXT SCH (08:37)
--- NOTE | 2023-05-10 12:57 | Discharge Summary ---
Date of Service May 10, 2023 Admission HPI Per Admitting Provider This is a 33-year-old male patient who presented to the emergency department with 24-36-hour history of worsening lower abdominal pain. Patient has no previous surgical history. He had a CT scan which shows a lrge 2.5 cm appendicitis, WBC 25,000. Status post appendectomy on 05/04/2023 (postop day #6) Patient was noted to have a gangrenous appendix. Patient had blood cultures drawn on 05/04/2023. 1 out of 2 cultures grew Gram positive rods. Principal Diagnosis Acute appendicitis Discharge Exam Constitutional cooperative and comfortable; not in distress and not diaphoretic afebrile Respiratory normal respiratory effort; no respiratory distress, no labored breathing and does not use accessory muscles Gastrointestinal (Abdomen) appropriate Jasen drain with serosangunois drainage (mostly serous), draining well Discharge Data Allergies Allergy/AdvReac Type Severity Reaction Status Date / Time No Known Allergies Allergy Unverified 05/04/23 01:12 Consultations 05/04/23 02:46 ED Decision to Admit Stat 05/06/23 15:48 Consult Internal Medicine Routine Procedures Performed Operation Date: 05/04/23 08:55 Actual Procedures p Laparoscopic Appendectomy(Not Applicable) - Kaveh Davis MD Ordered Studies 05/04/23 00:34 CT abd pelvis IV con only Stat Hospital Course (1) Acute appendicitis: Plan Patient wants to go home. Has remained afebrile for 2 days. WBC just about normal (within lab error range. WBC is 10.81 today, upper limit of normal is 10.8). Discharge with drain as it is draining more than 30cc's/24 hour period. Gangrenous appendix at high risk for abscess formation. Had post op fevers. Added Augmentin to discharge medications. WBC bumped up yesterday, almost normal today, for additional precaution, will order a CBC to be obtained as an outpatient tomorrow. Patient should F/U with Dr. Davis in 1-2 weeks for outpatient evaluation and drain removal when Dr. Garcia prefers. F/U with PCP to evaluate for return of BP's to baseline. Total Time Total Time Spent Total Time Spent (In Minutes): 40 Total Time Includes: Other (Patient eval, explanations, discharge papers, communication with care staff) Discharge Plan Discharge Items Patient Disposition: Home - Self-Care Reason For Visit: ACUTE APPENDICITIS Discharge Diagnosis: acute appendicitis Activity: Per Instructions section Lifting: No more than 25 pounds Bathing: No limitations Sexual Activity: When tolerated Exercise/Sports: Wait until after follow-up appointment Driving/Machine Use: Resume 3 days after discharge Weightbearing: Full weightbearing Non-emergency contact: Surgeon Call non-emergency contact if: your pain is worsening, your temperature is above 101.5 and your wound pain has increased Follow-up/Referrals: Wlii Hawkins DO [Primary Care Provider] - Diet: Regular Addtl Attending Provider Instructions: appt my clinic 2 weeks Addtl Child Neurologist Provider Instructions: Percocet has Tylenol mixed in. If using supplemental Tylenol, do not exceed 4 grams total Acetaminophen daily. Each Percocet contains 325mg of Acetaminophen. You may also alternate with Ibuprofen to require less Percocet. Record drain output daily. Call for a follow up appointment with Dr. Davis's office. Your drain is not ready to be removed now based on the recorded outputs. This will be re-assessed at your follow up appointment with Dr. Davis. Obtain blood work tomorrow. Follow up with your PCP regarding your blood pressures to see if they have returned back to your usual baseline after discharge. Pending Studies at Discharge: No Stand-Alone Forms: [facility], Smoking Cessation Medications and DC Order Prescriptions: New oxycodone-acetaminophen [Percocet] 5-325 mg tablet 1 tab PO Q6H Qty: 10 0RF Rx Instructions: Do not take more than 4,000mg of acetaminophen in a [address] or operate heavy machinery while taking this medication amoxicillin-pot clavulanate [Augmentin] 500-125 mg tablet 1 tab PO BID Qty: 14 0RF Discharge Orders: Discharge Order (Routine); Ordered 05/10/23 Ordered By: Mykel Guerrero Admission Data Admit Date/Time: 05/04/23 14:30 Attending Provider: Kaveh Davis Admit Provider: Aurea Bergeron Primary Care Provider: Wili Hawkins Other Providers: Aurea Bergeron; Clement Sotelo Coding Level of Care Code 15829 INP/OBS DISCH >30 MIN Diagnoses Acute appendicitis K35.80 Acute appendicitis type: with generalized peritonitis
--- NOTE | 2023-05-15 11:31 | Discharge Summary ---
Date of Service May 15, 2023 Admission HPI Per Admitting Provider This is a 33-year-old male patient who presented to the emergency department with 24-36-hour history of worsening lower abdominal pain. Patient has no previous surgical history. He had a CT scan which shows a lrge 2.5 cm appendicitis, WBC 25,000. Status post appendectomy on 05/04/2023 (postop day #6) Patient was noted to have a gangrenous appendix. Patient had blood cultures drawn on 05/04/2023. 1 out of 2 cultures grew Gram positive rods. Admission Exam Per Admitting Provider Physical Exam Constitutional: WD/WN, vitals as above Eyes: PERRL, conjunctivae normal, anicteric sclerae ENMT: external ear and nose normal, oropharynx normal Neck: trachea midline Respiratory: normal respiratory effort, lungs clear to auscultation Cardiovascular: RRR, no murmur, no edema Gastrointestinal (Abdomen): Inspection/Auscultation: abdomen normal to inspection and normal bowel sounds; abdomen not distended Percussion/Palpation: + abdomen tender, + guarding and abdomen soft; abdomen not rigid Musculoskeletal: no cyanosis or clubbing, extremities motor strength 5/5 Skin: no rashes, warm and dry Psychiatric: Orientation: alert and oriented x 3 Principal Diagnosis Acute appendicitis, complicated. Discharge Exam Gastrointestinal (Abdomen) Inspection/Auscultation: abdomen normal to inspection and normal bowel sounds; abdomen not distended Percussion/Palpation: + abdomen tender and abdomen soft; no guarding and abdomen not rigid Discharge Data Allergies Allergy/AdvReac Type Severity Reaction Status Date / Time No Known Allergies Allergy Unverified 05/04/23 01:12 Consultations 05/04/23 02:46 ED Decision to Admit Stat 05/06/23 15:48 Consult Internal Medicine Routine Procedures Performed Operation Date: 05/04/23 08:55 Actual Procedures p Laparoscopic Appendectomy(Not Applicable) - Kaveh Davis MD Ordered Studies 05/04/23 00:34 CT abd pelvis IV con only Stat Hospital Course (1) Acute appendicitis: Patient was admitted to the ED with a complicated appendicitis. He had a large phlegmon and extremely dilated appendix. He underwent an uncomplicated laparoscopic appendectomy. There was some purulent material in the belly but no obvious perforation. He has been on IV fluids IV antibiotics. He was afebrile with his stay and was medical consult was obtained. His workup was negative and his fever was likely due to his complicated appendicitis. A drain was placed intraoperatively which drained mainly serous fluid. He began tolerated diet well and was discharged home with follow-up in the office. His drain will be removed at that time. He was sent home on p.o. antibiotics. Total Time Total Time Spent Total Time Spent (In Minutes): 35 Discharge Plan Discharge Items Patient Disposition: Home - Self-Care Reason For Visit: ACUTE APPENDICITIS Discharge Diagnosis: acute appendicitis Activity: Per Instructions section Lifting: No more than 25 pounds Bathing: No limitations Sexual Activity: When tolerated Exercise/Sports: Wait until after follow-up appointment Driving/Machine Use: Resume 3 days after discharge Weightbearing: Full weightbearing Non-emergency contact: Surgeon Call non-emergency contact if: your pain is worsening, your temperature is above 101.5 and your wound pain has increased Follow-up/Referrals: Wili Hawkins DO [Primary Care Provider] - Diet: Regular Addtl Attending Provider Instructions: appt my clinic 2 weeks Addtl [employer] Provider Instructions: Percocet has Tylenol mixed in. If using supplemental Tylenol, do not exceed 4 grams total Acetaminophen daily. Each Percocet contains 325mg of Acetaminophen. You may also alternate with Ibuprofen to require less Percocet. Record drain output daily. Call for a follow up appointment with Dr. Davis's office. Your drain is not ready to be removed now based on the recorded outputs. This will be re-assessed at your follow up appointment with Dr. Davis. Obtain blood work tomorrow. Follow up with your PCP regarding your blood pressures to see if they have returned back to your usual baseline after discharge. Pending Studies at Discharge: No Stand-Alone Forms: [facility], Pain - Opioid Pain Management, Smoking Cessation Medications and DC Order Prescriptions: New oxycodone-acetaminophen [Percocet] 5-325 mg tablet 1 tab PO Q6H Qty: 10 0RF Rx Instructions: Do not take more than 4,000mg of acetaminophen in a [address] or operate heavy machinery while taking this medication amoxicillin-pot clavulanate [Augmentin] 500-125 mg tablet 1 tab PO BID Qty: 14 0RF Discharge Orders: Discharge Order (Routine); Ordered 05/10/23 Ordered By: Mykel Srivastava/Other Patient Handouts: Appendectomy, What Is Appendicitis? Admission Data Admit Date/Time: 05/04/23 14:30 Attending Provider: Kaveh Davis Admit Provider: Aurea Bergeron Primary Care Provider: Wili Hawkins Other Providers: Aurea Bergeron; Clement Sotelo Other Interventions: Discharge Summary Assessment (RN) Last Done: 05/10/23 13:20
== END 2023-05-10 14:14 | disposition home or self-care (01) | DRG 398 ==
LOC: ED 23:56 → EDINP 23:56 → 3E 05-04 15:44